=== PATIENT | male | born 1960 | race Caucasian/White ===

== ENCOUNTER 2018-04-12 07:50 | Day surgery (SDC) | payer OTHER ==
--- NOTE | 2018-04-11 16:56 | EKG ---
Test Date: 2018-04-11 Test Time: 16:54:54 Beaming Machine Operator: JOSUE MEASUREMENT RESULTS: Intervals: Rate: 69 OR: 152 QRSD: 92 QT: 366 QTc: 392 [place]: P: 23 OR: 152 QRS: 15 T: 58 INTERPRETIVE STATEMENTS: Normal sinus rhythm Normal ECG No previous ECG available for comparison Electronically Signed On 04-11-18 16:56:13 BAKERY DEMONSTRATOR by Zaheer Sandoval
[2018-04-11 17:44] LABS: Absolute Lymphocytes (CBC) 0.9 K/uL (0.7-4.9); Absolute Monocytes 0.7 K/uL (0.1-1.3); Absolute Neutrophil 4.1 K/uL (1.8-8.0); Basophils % 0.7 % (0-1.3); Eosinophils % 6.8 % (0-4.4); Hematocrit 43.7 % (39.6-49.0); MPV 9.3 fL (7.6-11.3); RBC Red Blood Cell Count 4.82 M/uL (4.33-5.43)
--- NOTE | 2018-04-11 17:44 | RAD REPORT ---
EXAM DESCRIPTION: RAD - Chest Pa And Lat (2 Views) - 04/11/2018 5:19 pm CLINICAL HISTORY: Preop chest, pending soft tissue mass removal COMPARISON: None. TECHNIQUE: PA and lateral views of the chest were obtained. FINDINGS: The lungs are clear. Heart size is normal and central vasculature is within normal limit s. No pleural effusion or pneumothorax seen. No acute bony finding noted. No aortic abnormality. IMPRESSION: No acute cardiopulmonary process.
[2018-04-11 17:50] LABS: Potassium 4.3 mmol/L (3.5-5.1)
[2018-04-12] MEDS ORDERED: NA CHLORIDE 0.9% 1,000 ML ONE (08:19)
[2018-04-12] MEDS: BUPIVACAINE 0.5% PF 10 ML VIAL ONE ×2 (09:07→10:22)
[2018-04-12] MEDS ORDERED: CEFAZOLIN/SWI 1gm 1 GM/10 ML SYR ONE (09:12)
[2018-04-12] MEDS ORDERED: LIDOCAINE 1% MPF 5 ML VIAL ONE (10:05)
[2018-04-12] MEDS ORDERED: PROPOFOL 200 MG/20 ML VIAL IV ONE (10:05)
[2018-04-12] MEDS ORDERED: FENTANYL CITR 100 MCG/2 ML ONE (10:05)
[2018-04-12] MEDS ORDERED: MIDAZOLAM HCL 2 MG/2 ML INJ ONE (10:05)
[2018-04-12] MEDS ORDERED: KETOROLAC 30 MG/ML INJ ONE (10:27)
[2018-04-12] MEDS ORDERED: EPHEDRINE SULF 50 MG/ML VIAL ONE (10:29)
[2018-04-12] MEDS ORDERED: NS 0.9% VIAL 10 ML ONE (10:29)
[2018-04-12] MEDS ORDERED: ONDANSETRON 4 MG/2 ML VIAL ONE (10:29)
--- NOTE | 2018-04-12 10:40 | P.BOP ---
Preoperative diagnosis: infected back subcutaneous mass Postoperative diagnosis: same Primary procedure: Excisional biopsy of infected back subcutaneous mass 8 x 6.5 cm Estimated blood loss: <10cc Specimen: infected back subcutaneous mass Findings: infected back subcutaneous mass with abscess Anesthesia: General Complications: None Transferred to: Recovery Room Condition: Good
--- NOTE | 2018-04-12 21:46 | OP ---
Date of Procedure: 04/12/2018 Surgeon: Felice Schrader MD Preoperative Diagnosis: Infected back subcutaneous mass. Postoperative Diagnosis: Infected back subcutaneous mass. Procedure: Excisional biopsy of infected back subcutaneous mass, 8 x 6.5 cm. Estimated Blood Loss: Less than 10 cc. Specimen: Infected back subcutaneous mass. Anesthesia: General plus local. Indications: This is the case of a 57-year-old patient, with infected back subcutaneous mass with pu rulent discharge, redness, and tenderness. He has this mass before, but it never did this to him. T his time, it just got worse, tender, and he came to the office for excision. Benefits, alternatives, and risks of excision with drainage of an abscess fully explained which include, but not limited to infection, bleeding, damage to adjacent structures, anesthesia complication, recurrence, [place], and even . He also understands this may not relieve any symptoms, he might need more than one surgical intervention. He understands he will require wet-to-dry dressing most likely in that area. We offer ed him home health agencies and he believes his can do, and he wants to try that first. Description Of Procedure: The patient brought to the operating room, placed in supine position. The area of concern was marked by me and the patient in the holding room. The patient was brought to e operating room, placed in supine position. Anesthesia was done without complication. Then, the pa tient was placed in lateral decubitus position with proper protection. The back area was prepped and draped in a sterile fashion. A time-out was called. An incision was made circumferentially to incl ude the skin, the necrotic tissue, the abscess, and the mass, all the way down to a muscle. Fascia o f the muscle was removed with the specimen. The area was irrigated. Cultures were obtained. Locula tions were open and then the area was packed with wet-to-dry dressing. The patient tolerated the pro cedure well. The patient was sent to recovery in stable condition. ADI/CHANDLER Voice ID: [id number] Report ID: [id number]
--- NOTE | 2018-04-12 21:49 | DS ---
Date of Discharge: 04/12/2018 Diagnosis: Infected back subcutaneous mass. Procedure: Excisional biopsy of infected back subcutaneous mass, 8 x 6.5 cm. Disposition: Home. Activity: As tolerated. No heavy lifting. Followup: Follow up in my office in 1 week. Call for appointment [phone]. Wet-to-dry dressing mary ly with normal saline. The patient's will be taking care of that. She was fully explained. ADI/CHANDLER Voice ID: [id number] Report ID: [id number]
== END 2018-04-12 11:44 | disposition home or self-care (01) ==
LOC: OR 07:50
PROVIDERS: ATTEND Surgery
PROC: 0JB70ZZ Excision of Back Subcutaneous Tissue and Fascia, Open Approach (ICD-10-PCS; principal; 2018-04-12 09:30)
DX: L72.0 Epidermal cyst (principal); L02.212 Cutaneous abscess of back [any part, except buttock and flank]; L03.312 Cellulitis of back [any part except buttock and flank]; E11.9 Type 2 diabetes mellitus without complications; I10 Essential (primary) hypertension; Z79.84 Long term (current) use of oral hypoglycemic drugs; Z79.899 Other long term (current) drug therapy
CPT/HCPCS: 36415; 71046; 80048; 82962; 85025; 87070; 87075; 87205; 88304; 88305; 93005; J0690; J2250; J2405; J2704; J3010; J7030